=== PATIENT | male | born 1965 ===

== ENCOUNTER 2021-04-30 12:39 | Emergency (ER) | payer MEDICAID ==
[~2021-04-30] VITALS: Ht 175.3 cm; Wt 65.8 kg
[2021-04-30 15:12] VITALS: BP 128/76
[2021-04-30] MEDS ORDERED: cefTRIAXone SOD 1,000 MG VL IM ONE (16:15)
== END 2021-04-30 16:14 | disposition home or self-care (01) ==
LOC: ER 12:39 → EDBD 12:39 → ER 16:14
DX: K02.9 Dental caries, unspecified (principal); F17.210 Nicotine dependence, cigarettes, uncomplicated; Z88.8 Allergy status to other drugs, medicaments and biological substances
CPT/HCPCS: 96372; 99283; J0696